=== PATIENT | male | born 1980 | race Caucasian/White ===

== ENCOUNTER 2016-07-16 10:07 | Emergency (ER) | payer OTHER | END 2016-07-16 13:41 | disposition home or self-care (01) | LOC: ER 10:07 | DX: I82.5Z2 Chronic embolism and thrombosis of unspecified deep veins of left distal lower extremity (principal); R91.1 Solitary pulmonary nodule; F17.200 Nicotine dependence, unspecified, uncomplicated; Z91.14 Patient's other noncompliance with medication regimen | CPT/HCPCS: 36415; 80307; 96360; 96361; G0480; J1650; Q9967 ==